=== PATIENT | female | born 1985 | race Caucasian/White ===

== ENCOUNTER 2018-11-26 11:30 | Emergency (ER) | payer BC, OTHER ==
--- OUTSIDE RECORDS SUMMARY | 2018-11-26 11:32 | XMS REPORT ---
:1985 [facility] Address [address] [place] [address] Care Team Providers Name Role Phone Unavailable Unavailable Unavailable Payers Payer Name Policy Type Policy Number Effective Date Expiration Date Problems This patient has no known problems. Allergies, Adverse Reactions, Alerts Allergy Name Allergy Status Severity Reaction(s) Onset Inactive Treating Comments Type Date Date Clinician mepian BETH Active SV 2018-11 00:00:0 0 Medications This patient has no known medications.
[2018-11-26 12:12] LABS: Absolute Lymphocytes (CBC) 1.5 K/uL (0.7-4.9); Absolute Monocytes 0.7 K/uL (0.1-1.3); Absolute Neutrophil 8.3 K/uL (1.8-8.0); Basophils % 0.3 % (0-1.3); Eosinophils % 0.4 % (0-4.4); Hematocrit 39.7 % (36.0-45.0); Lymphocytes % 14.3 % (15.3-44.8); MPV 8.5 fL (7.6-11.3); Monocytes % 6.8 % (3.3-12.3); RBC Red Blood Cell Count 4.42 M/uL (3.86-4.86)
[2018-11-26 12:15] LABS: Protime INR 1.02
[2018-11-26 12:32] LABS: ALT/SGPT 45 U/L (12-78); AST/SGOT 29 U/L (15-37); Albumin 3.1 g/dL (3.4-5.0); Alkaline Phosphatase 145 U/L (45-117); BUN Blood Urea Nitrogen 14 mg/dL (7-18); Bicarbonate 28 mmol/L (21-32); Bilirubin Direct 0.1 mg/dL (0-0.2); Bilirubin Total 0.5 mg/dL (0.2-1.0); Glucose Level 85 mg/dL (74-106); Magnesium 2.3 mg/dL (1.8-2.4); NT PRO-BNP 22 pg/mL (<125); Potassium 3.9 mmol/L (3.5-5.1); Protein, Total 8.1 g/dL (6.4-8.2); Sodium Level 140 mmol/L (136-145); Troponin (Emerg Dept Use Only) < 0.02 ng/mL (0.0-0.045)
[2018-11-26 13:33] LABS: Urine Bacteria 20-50 /HPF (<20); Urine Culture Reflex Order REFLEXED; Urine RBC >50 /HPF (NONE SEEN)
--- NOTE | 2018-11-26 13:35 | ER ---
Nurse's Notes [facility] Name: Venice Barrera Age: 33 yrs Sex: Female : 1985 Arrival Date: 11/26/2018 Time: 11:32 Bed 13 Private MD: Diagnosis: Gestational [-induced] hypertension without significant proteinuria;Cystitis Presentation: 11/26 11:34 Presenting complaint: Patient states: HTN for since 11/18/18, pt was at the time sv and was induced and had a . Was placed on Procardia 30 mg daily, f/u with PCP d/t HTN and was told to double her dose yesterday but BP remains elevated. Transition of care: patient was not received from another setting of care. Onset of symptoms was November 18, 2018. Care prior to arrival: None. 11:34 Method Of Arrival: Ambulatory sv 11:34 Acuity: JANNA 3 sv 11:40 Risk Assessment: Do you want to hurt yourself or someone else? Patient reports no rb1 desire to harm self or others. Initial Sepsis Screen: Does the patient meet any 2 criteria? No. Patient's initial sepsis screen is negative. Does the patient have a suspected source of infection? No. Patient's initial sepsis screen is negative. 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 - Social history:: Smoking status: Patient/guardian denies using tobacco. - Ebola Screening: : No symptoms or risks identified at this time. Screenin:40 Abuse screen: Denies threats or abuse. Nutritional screening: No deficits noted. rb1 Tuberculosis screening: No symptoms or risk factors identified. Fall Risk None identified. Assessment: 11:40 General: Appears in no apparent distress. comfortable, Behavior is calm, cooperative, rb1 Reports Had a on 11-20-2018 and was having trouble stabilizing her blood pressure after delivery. BENCH INSPECTOR prescribed Nifedipine 30 mg PO 1 tab daily. General: Denies fever. Pain: Denies pain. Neuro: Level of Consciousness is awake, alert, obeys commands, Oriented to person, place, time, situation. Cardiovascular: Capillary refill < 3 seconds is brisk in bilateral fingers. Respiratory: Reports cough that is productive, yellow sputum Airway is patent Respiratory effort is even, unlabored, Respiratory pattern is regular, symmetrical. Respiratory: Reports congestion. GI: No signs and/or symptoms were reported involving the gastrointestinal system. : No signs and/or symptoms were reported regarding the genitourinary system. Derm: Skin is pink, warm \T\ dry. Musculoskeletal: Range of motion: intact in all extremities. 12:40 Reassessment: Patient appears in no apparent distress at this time. No changes from rb1 previously documented assessment. at bedside. 13:30 Reassessment: Patient appears in no apparent distress at this time. Patient and/or rb1 family updated on plan of care and expected duration. Pain level reassessed. Patient is alert, oriented x 3, equal unlabored respirations, skin warm/dry/pink. remains at bedside. Patient denies pain at this time. Vital Signs: 11:38 BP 150 / 108; Pulse 111; Resp 18; Temp 97.7; Pulse Ox 100% ; Height 5 ft. 8 in. (172.72 sv cm); Pain 0/10; 11:40 Weight 82.78 kg (M); sv 12:20 BP 158 / 89; Pulse 107; Resp 17; Pulse Ox 98% on R/A; Pain 0/10; rb1 13:05 BP 137 / 91; Pulse 99; Resp 18; Pulse Ox 97% on R/A; Pain 0/10; rb1 13:05 rb1 14:00 BP 136 / 88; Pulse 108; Resp 17; Pulse Ox 100% on R/A; Pain 0/10; rb1 11:40 Body Mass Index 27.75 (82.78 kg, 172.72 cm) sv 13:05 Hold the Labetalol per Dr. Nash verbal order. 100% read back. rb1 ED Course: 11:32 Patient arrived in ED. as 11:36 Triage completed. sv 11:38 Arm band placed on. sv 11:39 Ubaldo Nash MD is Attending Physician. gs 11:40 Patient has correct armband on for positive identification. Bed in low position. Call rb1 light in reach. Side rails up X 1. pvc monitor on. Pulse ox on. NIBP on. 11:51 Milagros Mas, RN is Primary Nurse. [facility] 12:00 Inserted saline lock: 22 gauge in right antecubital area, using aseptic technique. rb1 Blood collected. 12:32 XRAY Chest (1 view) In Process Unspecified. EDMS 12:44 Urine collected: clean catch specimen, cloudy, blood tinged, mindy blood. 3 12:57 EKG done, by ED staff, reviewed by Ubaldo Nash MD. [facility] 14:05 No provider procedures requiring assistance completed. IV discontinued, intact, rb1 bleeding controlled, No redness/swelling at site. Pressure dressing applied. Administered Medications: 14:34 Not Given (due to decrease in BP): Labetalol 10 mg IVP once over 2 mins; For SBP rb1 greater than 140. Hold for HR less than 60, notify provider. Outcome: 13:35 Discharge ordered by . 14:05 Patient left the ED. [facility] 14:05 Discharged to home ambulatory, with significant other. [facility] 14:05 Condition: stable 14:05 Discharge instructions given to patient, Instructed on discharge instructions, follow up and referral plans. medication usage, Demonstrated understanding of instructions, follow-up care, medications, Prescriptions given X 2. Signatures: Dispatcher [employer] EDWV Swati Yu, Jeni Thompson RN, Rebecca, RN RN [facility] Rose Carr [facility] Ubaldo Nash MD MD Corrections: (The following items were deleted from the chart) 14:35 14:34 Patient left the ED. rb1 rb1
--- NOTE | 2018-11-26 13:36 | EDPHYS ---
Physician Documentation [facility] Name: Venice Barrera Age: 33 yrs Sex: Female : 1985 Arrival Date: 11/26/2018 Time: 11:32 Bed 13 Private MD: ED Physician Ubaldo Nash HPI: 11/26 13:30 This 33 yrs old Female presents to ER via Ambulatory with complaints of High gs Blood Pressure. 13:30 The patient has elevated blood pressure and discovered this at home. Onset: The gs symptoms/episode began/occurred gradually, 5 day(s) ago. Modifying factors:. Associated signs and symptoms: Pertinent positives: lightheadedness, Pertinent negatives: chest pain, dyspnea, headache. Severity of symptoms: At its worst the blood pressure was severe, in the emergency department the blood pressure is improved, mildly. The patient has experienced similar episodes in the past, a few times. The patient has been recently seen by a physician: the patient's primary care provider, c yo. 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 - Social history:: Smoking status: Patient/guardian denies using tobacco. - Ebola Screening: : No symptoms or risks identified at this time. ROS: 13:30 All other systems are negative. gs Exam: 13:30 Head/Face: Normocephalic, atraumatic. Eyes: Pupils equal round and reactive to light, gs extra-ocular motions intact. Lids and lashes normal. Conjunctiva and sclera are non-icteric and not injected. Cornea within normal limits. Periorbital areas with no swelling, redness, or edema. ENT: Nares patent. No nasal discharge, no septal abnormalities noted. Tympanic membranes are normal and external auditory canals are clear. Oropharynx with no redness, swelling, or masses, exudates, or evidence of obstruction, uvula midline. Mucous membranes moist. Neck: Trachea midline, no thyromegaly or masses palpated, and no cervical lymphadenopathy. Supple, full range of motion without nuchal rigidity, or vertebral point tenderness. No Meningismus. Chest/axilla: Normal chest wall appearance and motion. Nontender with no deformity. No lesions are appreciated. Cardiovascular: Regular rate and rhythm with a normal S1 and S2. No gallops, murmurs, or rubs. Normal PMI, no JVD. No pulse deficits. Respiratory: Lungs have equal breath sounds bilaterally, clear to auscultation and percussion. No rales, rhonchi or wheezes noted. No increased work of breathing, no retractions or nasal flaring. Abdomen/GI: Soft, non-tender, with normal bowel sounds. No distension or tympany. No guarding or rebound. No evidence of tenderness throughout. Back: No spinal tenderness. No costovertebral tenderness. Full range of motion. Skin: Warm, dry with normal turgor. Normal color with no rashes, no lesions, and no evidence of cellulitis. MS/ Extremity: Pulses equal, no cyanosis. Neurovascular intact. Full, normal range of motion. Neuro: Awake and alert, GCS 15, oriented to person, place, time, and situation. Cranial nerves II-XII grossly intact. Motor strength 5/5 in all extremities. Sensory grossly intact. Cerebellar exam normal. Normal gait. 13:30 Constitutional: The patient appears alert, awake. 13:30 Neuro: Deep tendon reflexes are 3+ (brisk) in the right bicep, right tricep, right brachioradialis, right patellar, left bicep, left tricep, left brachioradialis and left patellar. Vital Signs: 11:38 BP 150 / 108; Pulse 111; Resp 18; Temp 97.7; Pulse Ox 100% ; Height 5 ft. 8 in. (172.72 sv cm); Pain 0/10; 11:40 Weight 82.78 kg (M); sv 12:20 BP 158 / 89; Pulse 107; Resp 17; Pulse Ox 98% on R/A; Pain 0/10; rb1 13:05 BP 137 / 91; Pulse 99; Resp 18; Pulse Ox 97% on R/A; Pain 0/10; rb1 13:05 rb1 14:00 BP 136 / 88; Pulse 108; Resp 17; Pulse Ox 100% on R/A; Pain 0/10; rb1 11:40 Body Mass Index 27.75 (82.78 kg, 172.72 cm) sv 13:05 Hold the Labetalol per Dr. Nash verbal order. 100% read back. rb1 MDM: 12:12 Patient medically screened. 13:30 Differential diagnosis: hypertensive crisis, Malignant HTN, ecclampsia. Data gs reviewed: vital signs, nurses notes. Other consultation: dr prieto says if lft, plt, no headache, can discharge wants add labetalol to regimen. 13:36 Counseling: I had a detailed discussion with the patient and/or guardian regarding: the gs historical points, exam findings, and any diagnostic results supporting the discharge/admit diagnosis, the presence of at least one elevated blood pressure reading (>120/80) during this emergency department visit, the need for outpatient follow up, to return to the emergency department if symptoms worsen or persist or if there are any questions or concerns that arise at home. Special discussion: I have referred the patient to see his PCP for further evaluation of high blood pressure. 11/26 11:40 Order name: Basic Metabolic Panel; Complete Time: 13:30 11/26 11:40 Order name: CBC with Diff; Complete Time: 13:30 11/26 11:40 Order name: LFT's; Complete Time: 13:30 11/26 11:40 Order name: Magnesium; Complete Time: 13:30 11/26 11:40 Order name: NT PRO-BNP; Complete Time: 13:30 11/26 11:40 Order name: PT-INR; Complete Time: 13:30 11/26 11:40 Order name: Troponin (emerg Dept Use Only); Complete Time: 13:30 11/26 11:40 Order name: XRAY Chest (1 view); Complete Time: 14:21 11/26 11:40 Order name: EKG; Complete Time: 11:42 11/26 11:40 Order name: Urine Microscopic Only; Complete Time: 13:37 11/26 12:45 Order name: Urine Dipstick--Ancillary (enter results) 11/26 12:45 Order name: Urine --Ancillary (enter results) 11/26 13:36 Order name: Urine Culture EDMS 11/26 11:40 Order name: Cardiac monitoring; Complete Time: 12:58 11/26 11:40 Order name: EKG - Nurse/Tech; Complete Time: 12:58 11/26 11:40 Order name: IV Saline Lock; Complete Time: 12:58 11/26 11:40 Order name: Labs collected and sent; Complete Time: 12:58 11/26 11:40 Order name: O2 Per Protocol; Complete Time: 12:58 11/26 11:40 Order name: O2 Sat Monitoring; Complete Time: 12:58 11/26 11:40 Order name: Urine Dipstick-Ancillary (obtain specimen); Complete Time: 12:45 Administered Medications: 14:34 Not Given (due to decrease in BP): Labetalol 10 mg IVP once over 2 mins; For SBP rb1 greater than 140. Hold for HR less than 60, notify provider. Disposition: 11/26/18 13:35 Discharged to Home. Impression: Gestational [-induced] hypertension without significant proteinuria, Cystitis. - Condition is Stable. - Discharge Instructions: Hypertension, [id number]-[id number], Hypertension During , Oqaa-eh-Pouo, Managing Your Hypertension. - Prescriptions for labetalol 100 mg Oral tablet - take 1 tablet by ORAL route 2 times per day; 30 tablet. Keflex 500 mg Oral Capsule - take 1 capsule by ORAL route every 12 hours for 10 days; 14 capsule. - Medication Reconciliation Form, Thank You Letter, Antibiotic Education, Prescription Opioid Use form. - Follow up: Private Physician; When: 1 - 2 days; Reason: Re-evaluation by your physician. Signatures: Dispatcher [employer] Swati Davis RN RN sv Barber, Rebecca, RN RN rb1 Ubaldo Nash MD MD Corrections: (The following items were deleted from the chart) 13:37 13:35 11/26/2018 13:35 Discharged to Home. Impression: Gestational [-induced] gs hypertension without significant proteinuria. Condition is Stable. Forms are Medication Reconciliation Form, Thank You Letter, Antibiotic Education, Prescription Opioid Use. Follow up: Private Physician; When: 1 - 2 days; Reason: Re-evaluation by your physician. 14:34 13:37 11/26/2018 13:35 Discharged to Home. Impression: Gestational [-induced] rb1 hypertension without significant proteinuria; Cystitis. Condition is Stable. Discharge Instructions: Hypertension, Cbrj-gh-[id number], Hypertension During , Pafb-[id number]-[id number], Managing Your Hypertension. Prescriptions for labetalol 100 mg Oral tablet - take 1 tablet by ORAL route 2 times per day; 30 tablet. and Forms are Medication Reconciliation Form, Thank You Letter, Antibiotic Education, Prescription Opioid Use. Follow up: Private Physician; When: 1 - 2 days; Reason: Re-evaluation by your physician. gs
--- NOTE | 2018-11-26 14:12 | EKG ---
Test Date: 2018-11-26 Test Time: 12:53:48 Rare/Endangered Species Specialist: RAY MEASUREMENT RESULTS: Intervals: Rate: 90 ID: [id number] QRSD: 76 QT: 348 QTc: 425 [place]: P: 42 ID: [id number] QRS: 20 T: 61 INTERPRETIVE STATEMENTS: Normal sinus rhythm Possible Left atrial enlargement Borderline ECG No previous ECG available for comparison Electronically Signed On 11-26-18 14:12:19 [employer]GL[employer] POLISHER by Ruben Ken
--- NOTE | 2018-11-26 14:14 | RAD REPORT ---
EXAM DESCRIPTION: RAD - Chest Single View - 11/26/2018 12:32 pm CLINICAL HISTORY: Delays, shortness of breath COMPARISON: None. TECHNIQUE: AP portable chest image was obtained 1208 hours . FINDINGS: Lungs are clear. Heart and vasculature are normal. No measurable pleural effusion and no p neumothorax. No acute bony abnormality seen. No acute aortic findings suspected. IMPRESSION: No acute cardiopulmonary process.
[2018-11-26 14:47] LABS: Urine Blood 3+ (NEG); Urine Glucose NEGATIVE (NEG); Urine Protein 1+ (NEG); Urine pH 8.5 (5.0-7.0)
== END 2018-11-26 14:34 | disposition home or self-care (01) ==
LOC: ER 11:30
DX: O13.9 Gestational [pregnancy-induced] hypertension without significant proteinuria, unspecified trimester (principal); O86.22 Infection of bladder following delivery; F41.9 Anxiety disorder, unspecified; Z88.5 Allergy status to narcotic agent
CPT/HCPCS: 36415; 71045; 80048; 80076; 81003; 81015; 81025; 83735; 83880; 84484; 85025; 85610; 87086; 87088; 93005; 99284

== ENCOUNTER 2020-03-28 10:34 | Emergency (ER) | payer BC ==
--- OUTSIDE RECORDS SUMMARY | 2020-03-28 11:37 | XMS REPORT | Clinical Summary ---
:1985 Author Organization [facility] Address [address] [place] [id number] Care Team Providers Name Role Phone Alan Vera MD Primary Care Provider Allergies Active Allergy Reactions Severity Noted Date Comments Meperidine Seizure 09/19/2019 Medications No known medications Active Problems Not on file Encounters Date Type Specialty Care Team Description 09/19/2019 Office Visit Orthopedic Surgery Betito Agarwal [place] in in both feet (Primary Dx) after 03/28/2019 Family History Medical History Relation Name Comments Diverticulitis Father Hypertension Mother thyorid Relation Name Status Comments Father Mother Alive Social History Tobacco Use Types Packs/Day Years Used Date Former Smoker Smokeless Tobacco: Never Used Sex Assigned at Date Recorded Not on file Job Start Date Occupation Industry Not on file Not on file Not on file Travel History Travel Start Travel End No recent travel history available. Last Filed Vital Signs Vital Sign Reading Time Taken Comments Blood Pressure 137/92 09/19/2019 9:52 AM LEGAL SERVICE SPECIALIST Pulse 66 09/19/2019 9:52 AM LEGAL SERVICE SPECIALIST Temperature - - Respiratory Rate - - Oxygen Saturation - - Inhaled Oxygen Concentration - - Weight 79.4 kg (175 lb) 09/19/2019 9:52 AM LEGAL SERVICE SPECIALIST Height 172.7 cm (5' 8") 09/19/2019 9:52 AM LEGAL SERVICE SPECIALIST Body Mass Index 26.61 09/19/2019 9:52 AM LEGAL SERVICE SPECIALIST Plan of Treatment Health Maintenance Due Date Last Done Comments CERVICAL CANCER SCREENING 2006 INFLUENZA VACCINE 06/15/2020 Results Not on fileafter 03/28/2019 Advance Directives For more information, please contact: [phone] Type Date Recorded Patient Building Custodial Supervisor Explanati on Advance Directives, Living Will and Medical Power of Document Preparer Microfilming
--- OUTSIDE RECORDS SUMMARY | 2020-03-28 11:37 | XMS REPORT | Clinical Summary ---
:1985 Author Organization [facility] Address [address] [place] [address] Care Team Providers Name Role Phone Pcp Primary Care Provider Unavailable Allergies Not on File Medications Not on file Active Problems Not on file Encounters Date Type Specialty Care Team Description 07/27/2019 Hospital Encounter Radiology Virgadamo, Bilateral foot pain; MD Hossein Right foot pain ; Left foot pain 07/27/2019 Hospital Encounter Radiology Virgadamo, Bilateral foot pain; MD Hossein Right foot pain ; Left foot pain 07/12/2019 Hospital Encounter Virgadamo, Bilateral foot pain; MD Hossein Right foot pain ; Left foot pain 07/06/2019 Outside Orders Central Scheduling Leonid Akers al foot pain (Primary Dx); MD Hossein Right foot pain ; Left foot pain 06/06/2019 Outside Orders Central Scheduling Leonid Akers al foot pain MD Hossein (Primary Dx) after 03/28/2019 Social History Tobacco Use Types Packs/Day Years Used Date Never Assessed Sex Assigned at Date Recorded Not on file Job Start Date Occupation Industry Not on file Not on file Not on file Travel History Travel Start Travel End No recent travel history available. Last Filed Vital Signs Not on file Plan of Treatment Not on file Procedures Procedure Name Priority Date/Time Associated Comments Diagnosis MR LOWER EXTREMITY Routine 07/27/2019 12:05 PM Bilateral foot pain Results for this WITHOUT IV CONTRAST CDT Right foot p ain procedure are in RIGHT Left foot pain the results section. MR LOWER EXTREMITY Routine 07/27/2019 12:00 PM Bilateral foot pain Results for this WITHOUT IV CONTRAST CDT Right foot p ain procedure are in LEFT Left foot pain the results section. NERVE CONDUCTION Routine 07/12/2019 6:51 PM Resu lts for this STUDIES; 5-6 STUDIES CDT procedu re are in the results section. after 03/28/2019 Results MR lower extremity without IV contrast right side (07/27/2019 12:05 PM CDT) Specimen Narrative Performed At FINAL REPORT [facility] MRI of the right foot. MEDICAL HISTORY: Foot pain. COMPARISON STUDY: None available. TECHNIQUE: Multiplanar, multisequence im aging of the right foot was performed without the administration of gadolinium. FINDINGS: Bones: No osseous adenopathy is seen. Th ere is no evidence of fracture, malalignment or avascular necr osis. No marrow edema is seen. No arthritic changes are seen. Ligament: The anterior and posterior chriss ofibular and tibiofibular ligaments are intact with no evidence of tearing. The calcaneal fibular and tibial spring ligaments are intact. The Lisfranc ligament is intact. Tendons: The tendons of the lateral, med ial and anterior compartment are intact. No tendinosis is seen. Fluid: No fluid collections are seen. Sinus tarsi: The sinus tarsi is intact. Muscles: There is no muscular abnormalit y seen. Achilles tendon: No evidence of tendinop athy is seen. Plantar fascia: No evidence of plantar f asciitis is noted. IMPRESSION: 1. Essentially unremarkable MRI of the r ight foot. Signed: Sharan Raymundo MD Report Verified Date/Time:07/27/2019 12:55:27 Reading Location: [address] Reading Room Procedure Note Interface, External Ris In - 07/27/2019 1:20 PM CDT FINAL REPORT MRI of the right foot. MEDICAL HISTORY: Foot pain. COMPARISON STUDY: None available. TECHNIQUE: Multiplanar, multisequence im aging of the right foot was performed without the administration of gadolinium. FINDINGS: Bones: No osseous adenopathy is seen. Th ere is no evidence of fracture, malalignment or avascular necr osis. No marrow edema is seen. No arthritic changes are seen. Ligament: The anterior and posterior chriss ofibular and tibiofibular ligaments are intact with no evidence of tearing. The calcaneal fibular and tibial spring ligaments are intact. The Lisfranc ligament is intact. Tendons: The tendons of the lateral, med ial and anterior compartment are intact. No tendinosis is seen. Fluid: No fluid collections are seen. Sinus tarsi: The sinus tarsi is intact. Muscles: There is no muscular abnormalit y seen. Achilles tendon: No evidence of tendinop athy is seen. Plantar fascia: No evidence of plantar f asciitis is noted. IMPRESSION: 1. Essentially unremarkable MRI of the r ight foot. Signed: Sharan Raymundo MD Report Verified Date/Time: 07/27/2019 1 2:55:27 Reading Location: [facility] C013X [facility] Reading Room Performing Organization Address City/State/Zipcode Phone Number [facility] MR lower extremity without IV contrast left side (07/27/2019 12:00 PM CDT) Specimen Narrative Performed At FINAL REPORT [facility] MRI of the left foot. MEDICAL HISTORY: Foot pain. COMPARISON STUDY: MRI of the right foot from the same day. TECHNIQUE: Multiplanar, multisequence im aging of the right foot was performed without the administration of gadolinium. FINDINGS: Bones: No osseous adenopathy is seen. Th ere is no evidence of fracture, malalignment or avascular necr osis. No marrow edema is seen. No arthritic changes are seen. Ligament: The anterior and posterior chriss ofibular and tibiofibular ligaments are intact with no evidence of tearing. The calcaneal fibular and tibial spring ligaments are intact. The Lisfranc ligament is intact. Tendons: The tendons of the lateral, med ial and anterior compartment are intact. No tendinosis is seen. Fluid: Minimal fluid is seen in the retr ocalcaneal bursa. There is a 9 mm ganglion cyst interposed between th e plantar aspect of the second metatarsal and medial cuneiform. Sinus tarsi: The sinus tarsi is intact. Muscles: There is no muscular abnormalit y seen. Achilles tendon: No evidence of tendinop athy is seen. Plantar fascia: Mild increased signal is seen in the plantar fascia near its origin at the calcaneus with so me marrow edema consistent with mild plantar fasciitis.. IMPRESSION: 1. Minimal fluid in the retrocalcaneal b ursa. 2. Mild plantar fasciitis. 3. Small ganglion cyst interposed betwee n the plantar aspect of the second metatarsal and medial cuneiform. Signed: Sharan Raymundo MD Report Verified Date/Time:07/27/2019 15:26:32 Reading Location: [facility] C0[facility] Ortho Con sult Reading Room Procedure Note Interface, External Ris In - 07/27/2019 3:28 PM CDT FINAL REPORT MRI of the left foot. MEDICAL HISTORY: Foot pain. COMPARISON STUDY: MRI of the right foot from the same day. TECHNIQUE: Multiplanar, multisequence im aging of the right foot was performed without the administration of gadolinium. FINDINGS: Bones: No osseous adenopathy is seen. Th ere is no evidence of fracture, malalignment or avascular necr osis. No marrow edema is seen. No arthritic changes are seen. Ligament: The anterior and posterior chriss ofibular and tibiofibular ligaments are intact with no evidence of tearing. The calcaneal fibular and tibial spring ligaments are intact. The Lisfranc ligament is intact. Tendons: The tendons of the lateral, med ial and anterior compartment are intact. No tendinosis is seen. Fluid: Minimal fluid is seen in the retr ocalcaneal bursa. There is a 9 mm ganglion cyst interposed between th e plantar aspect of the second metatarsal and medial cuneiform. Sinus tarsi: The sinus tarsi is intact. Muscles: There is no muscular abnormalit y seen. Achilles tendon: No evidence of tendinop athy is seen. Plantar fascia: Mild increased signal is seen in the plantar fascia near its origin at the calcaneus with so me marrow edema consistent with mild plantar fasciitis.. IMPRESSION: 1. Minimal fluid in the retrocalcaneal b ursa. 2. Mild plantar fasciitis. 3. Small ganglion cyst interposed betwee n the plantar aspect of the second metatarsal and medial cuneiform. Signed: Sharan Raymundo MD Report Verified Date/Time: 07/27/2019 1 5:26:32 Reading Location: [facility] C0X Ortho Con sult Reading Room Performing Organization Address City/State/Zipcode Phone Number [facility] NERVE CONDUCTION STUDIES; 5-6 STUDIES (07/12/2019 6:51 PM CDT) Specimen Narrative Performed At [facility] Neurophysiology Department EMG[facility]NCS [address] [facility] [address] [place] [address] Name:Venice Curtis Date of :1985 Gender: Female Referring Physician:Hossein paz M.D. Examining Physician:Romeo hernandez D.O. Date of Exam: 07/12/2019 2:46 PM Patient History: The patient is a 33 year old woman who p resents for evaluation of bilateral foot pain.Brief neurologic al examination shows normal strength in the bilateral upper and lowe r extremities, proximally and distally.Deep tendon reflexes are pr esent and symmetrical. Sensation to vibration is >20 seconds at the MTP joints.Query: Evaluate for polyneuropathy, lumbosacral radiculopathy, sciatica neuropathy, other lower extremity monone uropathies. Motor Nerve Conduction: Nerve and SiteLatency Amplitude Segment Latency Difference Distance Conduction Velocity Peroneal.R Ankle4.0 ms10.8 mVExtensor digitorum brevis-Ankle 4.0 ms80 mm Fibula (head) 10.4 ms9.8 mVAnkle-Fibula (head)6.4 ms310 mm 48 m/s Knee12.4 ms8.3 mVFibula (head)- Knee 2.0 ms100 mm 50 m/s Tibial.R Ankle3.7 ms21.3 mVAbductor hallucis-Ankle 3.7 ms80 mm Popliteal fossa 12.5 ms18.0 mVAnkle-Popliteal fossa8.8 ms430 mm 49 m/s Peroneal.L Ankle4.6 ms6.7 mVExten sor digitorum brevis-Ankle 4.6 ms80 mm Fibula (head) 10.8 ms6.5 mVAnkle-Fibula (head)6.2 ms300 mm 48 m/s Knee12.7 ms6.6 mVFibula (head)- Knee 1.9 ms100 mm 53 m/s Tibial.L Ankle3.8 ms14.6 mVAbductor hallucis-Ankle 3.8 ms80 mm Popliteal fossa 12.4 ms13.1 mVAnkle-Popliteal fossa8.6 ms440 mm 51 m/s Sensory Nerve Conduction: Nerve and SiteOn set Latency Peak Latency Amplitude SegmentLatency Difference Distance Conduction Velocity Sural.R Lower leg3.0 ms3.8 ms28 mV Ank le-Lower leg 3.0 ms140 mm 47 m/s Sural.L Lower leg2.7 ms3.5 ms27 mV Ank le-Lower leg 2.7 ms140 mm 51 m/s Needle EMG Examination: Insertional Sponta neous Activity Volitional MUAPs Muscle Insertional Fibs +Wave Fasc Duration Amplitude Poly Recru itmentOther Vastus lateralis.RNormal None None None NormalNormal None Normal Tibialis anterior.RNormal None None None NormalNormal None Normal Peroneus longus.RNormal None None None Normal NormalNone N ormal Tibialis posterior.RNormal None None None NormalNormal None Normal Gastrocnemius.R Normal None None None Normal NormalNone N ormal Summary of Findings: Motor and sensory nerve conduction studi es are normal.Needle electromyography (EMG) shows no evidence of significant denervation, reinnervation, or other changes. Impression: This is a normal study of the bilateral lower extremities. Romeo Grissom D.O. Procedure Note Interface, External Ris In - 07/13/2019 4:16 PM CDT [facility] Neurophysiology Department EMG/NCS [address] [place] [address] Name: Venice Curtis Date of : 1985 Gender: Female Referring Physician: Hossein cordova M.D. Examining Physician: Barrie Barajas.O. Date of Exam: 07/12/2019 2:46 PM Patient History: The patient is a 33 year old woman who p resents for evaluation of bilateral foot pain. Brief neurological examination shows normal strength in the bilateral upper and lowe r extremities, proximally and distally. Deep tendon reflexes are pres ent and symmetrical. Sensation to vibration is >20 seconds at the MTP joints. Query: Evaluate for polyneuropathy, lumbosacral radiculopathy, sciatica neuropathy, other lower extremity monone uropathies. Motor Nerve Conduction: Nerve and Site Latency Amplitude Segment Latency Difference Distance Condu ction Velocity Peroneal.R Ankle 4.0 ms 10.8 mV Extensor digitorum brevis-Ankle 4.0 ms 80 mm Fibula (head) 10.4 ms 9.8 m V Ankle-Fibula (head) 6.4 ms 310 mm 48 m/ s Knee 12.4 ms 8.3 mV Fibula (head)-Knee 2.0 ms 100 mm 50 m/s Tibial.R Ankle 3.7 ms 21.3 mV Abductor hallucis-Ankle 3.7 ms 80 mm Popliteal fossa 12.5 ms 18.0 mV Ankle-Popliteal fossa 8.8 ms 430 mm 49 m/s Peroneal.L Ankle 4.6 ms 6.7 mV Extenso r digitorum brevis-Ankle 4.6 ms 80 mm Fibula (head) 10.8 ms 6.5 m V Ankle-Fibula (head) 6.2 ms 300 mm 48 m/ s Knee 12.7 ms 6.6 mV Fibula (head)-Knee 1.9 ms 100 mm 53 m/s Tibial.L Ankle 3.8 ms 14.6 mV Abductor hallucis-Ankle 3.8 ms 80 mm Popliteal fossa 12.4 ms 13.1 mV Ankle-Popliteal fossa 8.6 ms 440 mm 51 m/s Sensory Nerve Conduction: Nerve and Site Onset Latency Peak Latency Amplitude Segmen t Latency Difference Distance Condu ction Velocity Sural.R Lower leg 3.0 ms 3.8 ms 28 mV A nkle-Lower leg 3.0 ms 140 mm 47 m/s Sural.L Lower leg 2.7 ms 3.5 ms 27 mV A nkle-Lower leg 2.7 ms 140 mm 51 m/s Needle EMG Examination: Insertional Spontaneou s Activity Volitional MUAPs Muscle Insertional Fibs +Wave Fasc Duration Amplitude Poly Recruitment Other Vastus lateralis.R Normal None None None Normal Normal None Normal Tibialis anterior.R Normal None None None Normal Normal None Normal Peroneus longus.R Normal None None None Normal Normal None Normal Tibialis posterior.R Normal None None None Normal Normal None Normal Gastrocnemius.R Normal None None None Normal Normal None Normal Summary of Findings: Motor and sensory nerve conduction studi es are normal. Needle electromyography (EMG) shows no evidence of significant denervation, reinnervation, or other changes. Impression: This is a normal study of the bilateral lower extremities. Romeo Grissom D.O. Performing Organization Address City/State/Zipcode Phone Number [facility] after 03/28/2019 Insurance Payer Benefit Plan / Subscriber ID Type Phone Address Group BLUE CROSS/BLUE BCBS PPO POS EPO xxxxxxxxxxxx PPO [phone] [address] [place] [address]
--- OUTSIDE RECORDS SUMMARY | 2020-03-28 11:37 | XMS REPORT ---
:[address] [facility] t Address [address] [place] [address] Care Team Providers Name Role Phone Jody TURNER Primary Care Physician Nataly Agarwal MD Attending Clinician Payers Payer Name Policy Type Policy Number Effective Date Expiration Date S ourap[place]ar BCBSBCBS xxxxxxxxxxxx 2018 [place] CHOICE 00:00:00 [place] PPO/[employer] PPOxxxxxxxxxxx 2018-Pres entPPO Problems This patient has no known problems. Allergies, Adverse Reactions, Alerts Allergy Allergy Status Severity Reaction(s) Onset Inactive Treating Comm ents Source Name Type Date Date Clinician Meperidi Propensi Active Seizure 2018-11 [place] to 11-19 Methodi adverse 00:00: st reaction 00 s to drug meperidi DA Active [facility] [place] Family History Family Member Diagnosis Comments Start Date Stop Date Source Natural father Diverticulitis Laurita Gao Natural mother Hypertension [place] [employer] Social History Social Habit Start Date Stop Date Quantity Comments Source Sex Assigned At [facility] ethodi Alcohol Comment 2019-09-19 2019-09-19 occasional [facility] ethodist 00:00:00 00:00:00 Smoking Status Start Date Stop Date Source Former smoker 2019-09-19 00:00:00 2019-09-19 00:00:00 [place] Medications This patient has no known medications. Vital Signs Vital Name Observation Time Observation Value Comments Source Systolic blood 2019-09-19 15:52:00 137 mm[Hg] Maximoto n [place]ze pressure Diastolic blood 2019-09-19 15:52:00 92 mm[Hg] Maximot on [place] pressure Heart rate 2019-09-19 15:52:00 66 /min Abdullahi Gao Body height 2019-09-19 15:52:00 172.7 cm Abdullahi Gao Body weight 2019-09-19 15:52:00 79.379 kg Abdullahi Gao BMI 2019-09-19 15:52:00 26.61 kg/m2 Abdullahi Santillanist Procedures This patient has no known procedures. Plan of Care Planned Activity Planned Date Details Comments Source Future Scheduled Test [code = ] Future Scheduled Test [code = ] Results Test Description Test Time Test Comments Results Result [facility] e Comments MR, EXTREMITY, 2019-07-27 Reason for FINAL REPORT PATIENT LOWER, WITHOUT 15:26:00 Exam:->Foot ID: [id number] MRI of CONTRAST, LEFT pain the left foot. MEDICAL HISTORY: Foot pain. COMPARISON STUDY: MRI of the right foot from the same day. TECHNIQUE: Multiplanar, multisequence imaging of the right foot was performed without the administration of gadolinium. FINDINGS: Bones: No osseous adenopathy is seen. There is no evidence of fracture, malalignment or avascular necrosis. No marrow edema is seen. No arthritic changes are seen. Ligament: The anterior and posterior talofibular and tibiofibular ligaments are intact with no evidence of tearing. The calcaneal fibular and tibial spring ligaments are intact. The Lisfranc ligament is intact. Tendons: The tendons of the lateral, medial and anterior compartment are intact. No tendinosis is seen. Fluid: Minimal fluid is seen in the retrocalcaneal bursa. There is a 9 mm ganglion cyst interposed between the plantar aspect of the second metatarsal and medial cuneiform. Sinus tarsi: The sinus tarsi is intact. Muscles: There is no muscular abnormality seen. Achilles tendon: No evidence of tendinopathy is seen. Plantar fascia: Mild increased signal is seen in the plantar fascia near its origin at the calcaneus with some marrow edema consistent with mild plantar fasciitis.. IMPRESSION:1. Minimal fluid in the retrocalcaneal bursa.2. Mild plantar fasciitis.3. Small ganglion cyst interposed between the plantar aspect of the second metatarsal and medial cuneiform. Signed: Sharan Raymundo MDReport Verified Date/Time: 07/27/2019 15:26:32 Reading Location: [facility] C013X Ortho Consult Reading Room , EXTREMITY, 2019-07-27 Reason for FINAL REPORT PATIENT LOWER, WITHOUT 12:55:00 Exam:->Foot ID: [id number] MRI of CONTRAST, RIGHT pain the right foot. MEDICAL HISTORY: Foot pain. COMPARISON STUDY: None available. TECHNIQUE: Multiplanar, multisequence imaging of the right foot was performed without the administration of gadolinium. FINDINGS: Bones: No osseous adenopathy is seen. There is no evidence of fracture, malalignment or avascular necrosis. No marrow edema is seen. No arthritic changes are seen. Ligament: The anterior and posterior talofibular and tibiofibular ligaments are intact with no evidence of tearing. The calcaneal fibular and tibial spring ligaments are intact. The Lisfranc ligament is intact. Tendons: The tendons of the lateral, medial and anterior compartment are intact. No tendinosis is seen. Fluid: No fluid collections are seen. Sinus tarsi: The sinus tarsi is intact. Muscles: There is no muscular abnormality seen. Achilles tendon: No evidence of tendinopathy is seen. Plantar fascia: No evidence of plantar fasciitis is noted. IMPRESSION:1. Essentially unremarkable MRI of the right foot. Signed: Sharan Raymundo MDReport Verified Date/Time: 07/27/2019 12:55:27 Reading Location: [facility] C013X Ortho Consult Reading Room E CONDUCTION 2019-07-13 Reason for [facility] STUDIES; 5-6 16:16:00 exam:->[facility] STUDIES Pain Neurophysiology Department EMG/NCS [address] [place] [address] Name: Venice Curtis Date of : 1985 Gender: Female Referring Physician: Hossein Akers M.D. Examining Physician: Romeo Grissom D.O. Date of Exam: 07/12/2019 2:46 PM Patient History: The patient is a 33 year old woman who presents for evaluation of bilateral foot pain. Brief neurological examination shows normal strength in the bilateral upper and lower extremities, proximally and distally. Deep tendon reflexes are present and symmetrical. Sensation to vibration is >20 seconds at the MTP joints. Query: Evaluate for polyneuropathy, lumbosacral radiculopathy, sciatica neuropathy, other lower extremity mononeuropathies. Motor Nerve Conduction: Nerve and Site Latency Amplitude Segment Latency Difference Distance Conduction Velocity Peroneal.R Ankle 4.0 ms 10.8 mV Extensor digitorum brevis-Ankle 4.0 ms 80 mm Fibula (head) 10.4 ms 9.8 mV Ankle-Fibula (head) 6.4 ms 310 mm 48 m/s Knee 12.4 ms 8.3 mV Fibula (head)-Knee 2.0 ms 100 mm 50 m/s Tibial.R Ankle 3.7 ms 21.3 mV Abductor hallucis-Ankle 3.7 ms 80 mm Popliteal fossa 12.5 ms 18.0 mV Ankle-Popliteal fossa 8.8 ms 430 mm 49 m/s Peroneal.L Ankle 4.6 ms 6.7 mV Extensor digitorum brevis-Ankle 4.6 ms 80 mm Fibula (head) 10.8 ms 6.5 mV Ankle-Fibula (head) 6.2 ms 300 mm 48 m/s Knee 12.7 ms 6.6 mV Fibula (head)-Knee 1.9 ms 100 mm 53 m/s Tibial.L Ankle 3.8 ms 14.6 mV Abductor hallucis-Ankle 3.8 ms 80 mm Popliteal fossa 12.4 ms 13.1 mV Ankle-Popliteal fossa 8.6 ms 440 mm 51 m/s Sensory Nerve Conduction: Nerve and Site Onset Latency Peak Latency Amplitude Segment Latency Difference Distance Conduction Velocity Sural.R Lower leg 3.0 ms 3.8 ms 28 mV Ankle-Lower leg 3.0 ms 140 mm 47 m/s Sural.L Lower leg 2.7 ms 3.5 ms 27 mV Ankle-Lower leg 2.7 ms 140 mm 51 m/s Needle EMG Examination: Insertional Spontaneous Activity Volitional MUAPs Muscle Insertional Fibs +Wave [...] of Findings: Motor and sensory nerve conduction studies are normal. Needle electromyography (EMG) shows no evidence of significant denervation, reinnervation, or other changes. Impression: This is a normal study of the bilateral lower extremities. Romeo Grissom D.O.
[2020-03-28] MEDS ORDERED: METOCLOPRAMIDE 10 MG/2mL INJ ONE (11:54)
[2020-03-28] MEDS ORDERED: DIPHENHYDRAMINE 50 MG/ML VIAL ONE (11:54)
[2020-03-28 12:15] LABS: Absolute Lymphocytes (CBC) 1.3 K/uL (0.7-4.9); Basophils % 0.3 % (0-1.3); Hematocrit 46.7 % (36.0-45.0); Lymphocytes % 14.6 % (15.3-44.8); Potassium 4.1 mmol/L (3.5-5.1); RBC Red Blood Cell Count 5.23 M/uL (3.86-4.86)
[2020-03-28 12:40] LABS: Urine Blood 1+ (NEG); Urine Glucose NEGATIVE (NEG); Urine Protein 2+ (NEG); Urine Specific Gravity >1.030 (1.005-1.030)
[2020-03-28 13:39] LABS: Urine Bacteria >50 /HPF (<20)
[2020-03-28 13:40] LABS: Urine Culture Reflex Order NOT NEEDED
--- NOTE | 2020-03-28 14:13 | EDPHYS ---
Physician Documentation [facility] Name: Venice Barrera Age: 34 yrs Sex: Female : 1985 Arrival Date: 03/28/2020 Time: 10:35 Bed 14 Private MD: ED Physician Sarmad Grissom HPI: 03/28 12:37 This 34 yrs old Female presents to ER via Ambulatory with complaints of jr8 Nausea/Vomiting, Dizziness. 12:37 The patient presents to the emergency department with nausea, vomiting. Onset: The jr8 symptoms/episode began/occurred acutely, today. Possible causes: unknown. The symptoms are aggravated by nothing. The symptoms are alleviated by nothing. Associated signs and symptoms: Pertinent positives: headache and dizziness . Severity of symptoms: At their worst the symptoms were moderate in the emergency department the symptoms have improved mildly. The patient has not experienced similar symptoms in the past. The patient has been recently seen by a physician:. 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 - Social history:: Smoking status: Patient/guardian denies using tobacco, but has a distant history of tobacco abuse. ROS: 12:37 Eyes: Negative for injury, pain, redness, and discharge, ENT: Negative for injury, jr8 pain, and discharge, Neck: Negative for injury, pain, and swelling, Cardiovascular: Negative for chest pain, palpitations, and edema, Respiratory: Negative for shortness of breath, cough, wheezing, and pleuritic chest pain, Back: Negative for injury and pain, MS/Extremity: Negative for injury and deformity, Skin: Negative for injury, rash, and discoloration. 12:37 Abdomen/GI: Positive for nausea and vomiting, Negative for abdominal pain, diarrhea, constipation, abdominal cramps, abdominal distension. 12:37 Neuro: Positive for dizziness, headache. Exam: 12:37 Eyes: Pupils equal round and reactive to light, extra-ocular motions intact. Lids and jr8 lashes normal. Conjunctiva and sclera are non-icteric and not injected. Cornea within normal limits. Periorbital areas with no swelling, redness, or edema. ENT: Nares patent. No nasal discharge, no septal abnormalities noted. Tympanic membranes are normal and external auditory canals are clear. Oropharynx with no redness, swelling, or masses, exudates, or evidence of obstruction, uvula midline. Mucous membranes moist. Neck: Trachea midline, no thyromegaly or masses palpated, and no cervical lymphadenopathy. Supple, full range of motion without nuchal rigidity, or vertebral point tenderness. No Meningismus. Cardiovascular: Regular rate and rhythm with a normal S1 and S2. No gallops, murmurs, or rubs. Normal PMI, no JVD. No pulse deficits. Respiratory: Lungs have equal breath sounds bilaterally, clear to auscultation and percussion. No rales, rhonchi or wheezes noted. No increased work of breathing, no retractions or nasal flaring. Abdomen/GI: Soft, non-tender, with normal bowel sounds. No distension or tympany. No guarding or rebound. No evidence of tenderness throughout. Back: No spinal tenderness. No costovertebral tenderness. Full range of motion. Skin: Warm, dry with normal turgor. Normal color with no rashes, no lesions, and no evidence of cellulitis. MS/ Extremity: Pulses equal, no cyanosis. Neurovascular intact. Full, normal range of motion. Neuro: Awake and alert, GCS 15, oriented to person, place, time, and situation. Cranial nerves II-XII grossly intact. Motor strength 5/5 in all extremities. Sensory grossly intact. Cerebellar exam normal. Normal gait. Vital Signs: 10:52 BP 142 / 101; Pulse 92; Resp 14; Temp 97.2(TE); Pulse Ox 99% on R/A; Weight 83.91 kg; ss Height 5 ft. 7 in. (170.18 cm); Pain 0/10; 11:30 BP 141 / 99; Pulse 80; Resp 16; Pulse Ox 100% ; ah 12:15 BP 100 / 72; Pulse 71; Resp 16; Pulse Ox 97% ; ah 13:00 BP 119 / 81; Pulse 66; Resp 15; Pulse Ox 97% ; ah 13:45 BP 119 / 82; Pulse 66; Resp 16; Pulse Ox 97% ; ah 10:52 Body Mass Index 28.97 (83.91 kg, 170.18 cm) MDM: 10:58 Patient medically screened. jr8 14:11 Data reviewed: vital signs, nurses notes, lab test result(s), and as a result, I will jr8 discharge patient. Data interpreted: Pulse oximetry: on room air is 99 %. Interpretation: normal. Counseling: I had a detailed discussion with the patient and/or guardian regarding: the historical points, exam findings, and any diagnostic results supporting the discharge/admit diagnosis, lab results, the need for outpatient follow up, a family practitioner, to return to the emergency department if symptoms worsen or persist or if there are any questions or concerns that arise at home. Response to treatment: the patient's symptoms have mildly improved after treatment. 03/28 11:34 Order name: CBC with Diff; Complete Time: 12:37 [facility] 03/28 11:34 Order name: Basic Metabolic Panel; Complete Time: 12:37 [facility] 03/28 12:31 Order name: Urine Dipstick--Ancillary (enter results); Complete Time: 12:46 03/28 12:31 Order name: Urine --Ancillary (enter results); Complete Time: 12:46 03/28 12:32 Order name: Urine Culture 03/28 12:32 Order name: Urine Microscopic Only; Complete Time: 14:11 03/28 11:34 Order name: Urine Test (obtain specimen); Complete Time: 12:32 [facility] 03/28 11:34 Order name: Urine Dipstick-Ancillary (obtain specimen); Complete Time: 12:32 [facility] 03/28 11:34 Order name: IV; Complete Time: 11:51 [facility] Administered Medications: 12:00 Drug: Reglan 10 mg Route: IVP; Site: right antecubital; 14:51 Follow up: Response: No adverse reaction 12:00 Drug: Benadryl 25 mg Route: IVP; Site: right antecubital; 14:50 Follow up: Response: No adverse reaction 14:30 Drug: Meclizine 25 mg Route: PO; 15:10 Follow up: Response: No adverse reaction 14:30 Drug: Valium 5 mg Route: PO; 15:10 Follow up: Response: No adverse reaction Disposition: 03/29 05:35 Co-signature as Attending Physician, Sarmad Grissom MD I agree with the assessment and nell plan of care. Disposition: 03/28/20 14:12 Discharged to Home. Impression: Other peripheral vertigo, Urinary tract infection, site not specified. - Condition is Stable. - Discharge Instructions: Benign Positional Vertigo, Urinary Tract Infection, Adult. - Prescriptions for Meclizine 25 mg Oral Tablet - take 1 tablet by ORAL route every 8 hours As needed; 30 tablet. Zofran 4 mg Oral Tablet - take 1 tablet by ORAL route every 12 hours As needed; 20 tablet. Macrobid 100 mg Oral Capsule - take 1 capsule by ORAL route every 12 hours for 7 days; 14 capsule. - Medication Reconciliation Form, Thank You Letter, Antibiotic Education, Prescription Opioid Use form. - Follow up: Private Physician; When: 2 - 3 days; Reason: Recheck today's complaints, Continuance of care, Re-evaluation by your physician. - Problem is new. - Symptoms have improved. Signatures: Dispatcher [employer] EDMS Sarmad Grissom MD MD cha Smirch, Shelby, RN RN ss Galo Cabrera PA PA jrRain Barbour RN RN vc Harris, Amy, RN RN Corrections: (The following items were deleted from the chart) 03/28 15:13 14:12 03/28/2020 14:12 Discharged to Home. Impression: Other peripheral vertigo; vc Urinary tract infection, site not specified. Condition is Stable. Forms are Medication Reconciliation Form, Thank You Letter, Antibiotic Education, Prescription Opioid Use. Follow up: Private Physician; When: 2 - 3 days; Reason: Recheck today's complaints, Continuance of care, Re-evaluation by your physician. Problem is new. Symptoms have improved. jr8
--- NOTE | 2020-03-28 14:13 | ER ---
[facility] Name: Venice Barrera Age: 34 yrs Sex: Female : 1985 Arrival Date: 03/28/2020 Time: 10:35 Bed 14 Private MD: Diagnosis: Other peripheral vertigo;Urinary tract infection, site not specified Presentation: 03/28 10:53 Chief complaint: Patient states: Lightheadedness that began 3 days ago now with headache, N/V. Pt was curious if she was , but home UPT was inconclusive. Coronavirus screen: Proceed with normal triage. Patient denies a cough. Patient denies shortness of breath or difficulty breathing. Patient denies measured and/or subjective temperature greater than 100.4F prior to today's visit. Patient denies travel on a cruise ship or to a country the [facility] currently lists as an affected area. Patient denies contact with known and/or suspected case of COVID-19. Ebola Screen: Patient denies exposure to infectious person. Patient denies travel to an Ebola-affected area in the 21 days before illness onset. Initial Sepsis Screen: Does the patient meet any 2 criteria? No. Patient's initial sepsis screen is negative. Does the patient have a suspected source of infection? No. Patient's initial sepsis screen is negative. Risk Assessment: Do you want to hurt yourself or someone else? Patient reports no desire to harm self or others. Onset of symptoms was March 25, 2020. 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 - Social history:: Smoking status: Patient/guardian denies using tobacco, but has a distant history of tobacco abuse. Screenin:39 Abuse screen: Denies threats or abuse. Nutritional screening: No deficits noted. Tuberculosis screening: No symptoms or risk factors identified. Fall Risk None identified. Assessment: 11:15 General: Appears uncomfortable, Behavior is calm, cooperative, appropriate for age. Pain: Denies pain. Neuro: Level of Consciousness is awake, alert, Oriented to person, place, time, situation, Appropriate for age Reports dizziness, since 2 days. Cardiovascular: Heart tones S1 S2 present Capillary refill < 3 seconds Patient's skin is warm and dry. Respiratory: Airway is patent Respiratory effort is even, unlabored, Respiratory pattern is regular, symmetrical. GI: Bowel sounds present X 4 quads. Abd is soft and non tender Reports nausea, vomiting, Patient currently denies abdominal pain. GI: Abdomen is non-distended. : Denies burning with urination. EENT: No signs and/or symptoms were reported regarding the EENT system. Derm: No signs and/or symptoms reported regarding the dermatologic system. Musculoskeletal: No signs and/or symptoms reported regarding the musculoskeletal system. 12:30 Reassessment: Pt lying in bed awaiting results. No needs voiced at this time. 13:30 Reassessment: Patient and/or family updated on plan of care and expected duration. Pain ah level reassessed. Patient is alert, oriented x 3, equal unlabored respirations, skin warm/dry/pink. Patient states feeling better. 14:20 Reassessment: Discharge instructions given to Pt and IV removed. Pt voiced understanding of new prescriptions. Pt became very nauseated and began to vomit. Provider informed and received order for meds to give. 15:05 Reassessment: Medications were effective. Pt voiced she felt she could make it home. Pt ah wheeled out to private vehicle. Vital Signs: 10:52 BP 142 / 101; Pulse 92; Resp 14; Temp 97.2(TE); Pulse Ox 99% on R/A; Weight 83.91 kg; Height 5 ft. 7 in. (170.18 cm); Pain 0/10; 11:30 BP 141 / 99; Pulse 80; Resp 16; Pulse Ox 100% ; ah 12:15 BP 100 / 72; Pulse 71; Resp 16; Pulse Ox 97% ; ah 13:00 BP 119 / 81; Pulse 66; Resp 15; Pulse Ox 97% ; 13:45 BP 119 / 82; Pulse 66; Resp 16; Pulse Ox 97% ; ah 10:52 Body Mass Index 28.97 (83.91 kg, 170.18 cm) ED Course: 10:35 Patient arrived in ED. am2 10:52 Arm band placed on right wrist. 10:54 Triage completed. ss 10:58 [facility] jr8 10:58 Sarmad Grissom MD is Attending Physician. jr8 11:42 Adelina Ken, RN is Primary Nurse. 11:51 Initial lab(s) drawn, by nj, sent to lab. Inserted saline lock: 20 gauge in right em1 antecubital area, using aseptic technique. Blood collected. Missed attempt(s): 20 gauge in right antecubital area. 12:39 Patient has correct armband on for positive identification. Bed in low position. Call light in reach. Side rails up X 1. Pulse ox on. NIBP on. 14:27 No provider procedures requiring assistance completed. IV discontinued, intact, bleeding controlled, No redness/swelling at site. Pressure dressing applied. Administered Medications: 12:00 Drug: Reglan 10 mg Route: IVP; Site: right antecubital; 14:51 Follow up: Response: No adverse reaction 12:00 Drug: Benadryl 25 mg Route: IVP; Site: right antecubital; 14:50 Follow up: Response: No adverse reaction 14:30 Drug: Meclizine 25 mg Route: PO; ah 15:10 Follow up: Response: No adverse reaction 14:30 Drug: Valium 5 mg Route: PO; 15:10 Follow up: Response: No adverse reaction Outcome: 14:12 Discharge ordered by . jr8 14:26 Discharged to home via wheelchair. 14:26 Condition: good 14:26 Discharge instructions given to patient, Instructed on discharge instructions, follow up and referral plans. medication usage, Demonstrated understanding of instructions, follow-up care, medications, Prescriptions given X 3. 15:13 Patient left the ED. Signatures: Davey Durant em1 Sharri Valladares RN RN Galo Cabrera PA PA jr8 Nicky Orellana am2 Rain Mims RN RN Adelina Ken RN RN
[2020-03-28] MEDS ORDERED: MECLIZINE HCL 12.5 MG TAB ONE (14:36)
[2020-03-28] MEDS ORDERED: DIAZEPAM 5 MG TABLET ONE (14:36)
[2020-03-28 15:57] VITALS: TEMP 97.2
[2020-03-28 16:00] VITALS: O2SAT 97
[2020-03-28 16:03] VITALS: BP 119/82
== END 2020-03-28 15:13 | disposition home or self-care (01) ==
LOC: ER 10:34
DX: N39.0 Urinary tract infection, site not specified (principal); Z88.5 Allergy status to narcotic agent
CPT/HCPCS: 87088; 85025; 87086; 80048; 36415; 81025; 96375; 96374; 99284; J2765; J1200; 81003; 81015; J8597